=== PATIENT | male | born 1990 | race Caucasian/White ===

== ENCOUNTER 2022-09-13 17:34 | Emergency (ER) | payer OTHER, SELFPAY ==
[2022-09-13 17:39] VITALS: BP 162/95; PULSE 84; RESP 14; TEMP 36.5; O2SAT 99; BMI 33.4
--- NOTE | 2022-09-13 17:43 | DI.RAD.S_ITS ---
PROCEDURE: XR FINGER LT MIN 2V INDICATIONS: direct blow/crush injury TECHNIQUE: AP hand, 2 views of the 5th finger(s) acquired. COMPARISON: None. FINDINGS: Bones: No fractures or dislocations. No suspicious bony lesions. Soft tissues: No suspicious soft tissue calcifications. IMPRESSION: Intact left 5th digit. Dictated by: Delfina Grande M.D. on 09/13/2022 at 17:57 Approved by: Delfina Grande M.D. on 09/13/2022 at 17:58
[2022-09-13 18:54] VITALS: PULSE 78; RESP 18; O2SAT 98
--- NOTE | 2022-09-13 18:54 | ED_ITS ---
HPI - Extremity Injury (Upper) General Chief Complaint: Extremity Injury, Upper Stated Complaint: Smashed L pinky finger at work Time Seen by Provider: 09/13/22 18:39 Source: patient Mode of arrival: Ambulatory History of Present Illness HPI narrative: Patient is a healthy 32-year-old male who presents with left pinky injury. He reports that 2 days ago at work it got smashed. He is a subungual hematoma. Over last 2 days it has gotten more painful swollen. Related Data Allergies Allergy/AdvReac Type Severity Reaction Status Date / Time No Known Drug Allergies Allergy Verified 09/13/22 17:43 Review of Systems Review of Systems ROS Unobtainable: All systems reviewed & are unremarkable except as noted in HPI and below Patient History Social History Smoking Status: Former smoker Smoking Status: Former smoker alcohol intake frequency: 0-2 drinks per day Substance Use Type: does not use Exam Initial Vital Signs Initial Vital Signs: Vital Signs Temperature 97.7 F 09/13/22 17:39 Pulse Rate 84 09/13/22 17:39 Respiratory Rate 14 09/13/22 17:39 Blood Pressure 162/95 H 09/13/22 17:39 Pulse Oximetry 99 09/13/22 17:39 Oxygen Delivery Method Room Air 09/13/22 17:39 GENERAL: Well-appearing, well-nourished and in no acute distress. CARDIOVASCULAR: peripheral pulses in tact, cap refill <2 sec RESPIRATORY: No respiratory distress, speaks in full sentences without difficulty EXTREMITIES: Normal range of motion, no clubbing or edema. Neurovascularly intact NEUROLOGICAL: Cranial nerves II through XII grossly intact. Normal gait and speech. SKIN: Warm, dry, no petechiae, no rashes or lesions. Left little finger 100% subungual hematoma minimal swelling neurovascularly intact. Procedures Nail Trephination Location (finger): left and short Procedure successful: Yes Patient tolerated procedure: well Complications: bleeding Nerve Block Nerve Block 1: Local Anesthetic: lidocaine 1% Amount of anesthesia used (mL): 2 Side: left Nerve Blocks: digital Procedure Successful: Yes Patient Tolerated Procedure: Well and No complications Course Orders Ordered: ED Orders 09/13/22 17:43 XR finger LT min 2V Stat Discontinued Medications Lidocaine HCl (Lidocaine 1% (Pf) 5 Ml) 5 ml INJ NOW ONE Stop: 09/13/22 18:55 Last Admin: 09/13/22 18:55 Dose: 5 ml Documented By: DAGO Vital Signs Vital signs: Vital Signs - 8 hr 09/13/22 17:39 09/13/22 18:54 Temperature 97.7 F Pulse Rate 84 78 Respiratory Rate 14 18 Blood Pressure 162/95 H Pulse Oximetry 99 98 Oxygen Delivery Method Room Air Room Air MDM - Extremity Injury (Upper) Imaging Data Extremity x-ray #1: Radiologist's Impression: PROCEDURE:? XR FINGER LT MIN 2V ? INDICATIONS:? direct blow/crush injury ? TECHNIQUE:? AP hand, 2 views of the 5th finger(s) acquired.? ? COMPARISON:? None. ? FINDINGS:? ? Bones:? No fractures or dislocations.? No suspicious bony lesions.? ? Soft tissues:? No suspicious soft tissue calcifications.? ? IMPRESSION:? Intact left 5th digit. ? ? Dictated by: Delfina Grande M.D. on 09/13/2022 at 17:57 ?? [facility] Narrative Medical decision making narrative: 32-year-old male who presents with left little finger crush injury. He has a subungual hematoma 100% of the nail. X-rays negative for fracture. It is easily drained. He had significant relief from pain with drainage. No evidence of infection. Discharge Plan Departure Patient Disposition: Home Clinical Impression: Subungual hematoma of left little finger Instructions: DI for Subungual Hematoma Activity Restrictions/Additional Instructions: *You have been diagnosed with left middle finger subungual hematoma *What to do: At this time keep finger clean and dry. It should feel better. Elevate and ice as needed *Continue to take medications as directed Tylenol Motrin as directed if needed for pain *Follow up with your primary care provider in 2-3 days or call [phone] *Return to ER if you should have increasing redness swelling pain fever [or] any new, worsening or concerning symptoms Referrals: Oswald,MD Pieter [Primary Care Provider] - Stand Alone Forms: Patient Portal/API
[2022-09-13] MEDS: LIDOCAINE 1% (PF) 5 ML INJ (18:55)
--- NOTE | 2022-09-13 18:57 | PC.NURSE ---
Physician at the bedside. Nailbed procedure. Pt tolerated procedure well.
== END 2022-09-13 19:12 | disposition home or self-care (01) ==
PROVIDERS: Emergency Provider Emergency Medicine; Family Provider Physician Assistant
DX: S60.152A Contusion of left little finger with damage to nail, initial encounter (principal); W23.0XXA Caught, crushed, jammed, or pinched between moving objects, initial encounter; Y99.0 Civilian activity done for income or pay
CPT/HCPCS: 11740; 73140; 99283